=== PATIENT | male | born 1940 | race Caucasian/White ===

== ENCOUNTER 2017-10-24 12:26 | Outpatient (CLI) | payer OTHER, SELFPAY ==
[2017-10-24 12:54] LABS: Abs Immature Grans 0.01 k/cumm (0.0-0.09); Absolute Basophil Count 0.01 k/cumm (0.0-0.2); Absolute Eosinophil Count 0.19 k/cumm (0.0-0.7); Absolute Lymphocyte Count 1.44 k/cumm (1.2-3.4); Absolute Neutrophil Count 4.45 k/cumm (1.2-6.7); Basophils % 0.2; Eosinophils % 2.9; HCT 39.4 % (40.0-50.0); HGB 12.9 g/dL (13.5-17.5); Immature Grans % 0.2; Lymphocytes % 22.2; Mean Corp. HGB Concentration 32.7 g/dL (32.0-36.0); Mean Corpuscular Volume 91.6 fL (80-95); Mean Platelet Volume 8.8 fL (8.0-11.0); Monocytes % 6.2; Neutrophils % 68.3; Platelet Count 271 x1000/uL (130-400); RBC Distribution Width 14.5 % (11.8-14.1)
[2017-10-24 12:57] LABS: Hemoglobin A1C 5.7 % (4.5-6.2)
[2017-10-24 13:05] LABS: Anion Gap 8.8 mmol/L (3-11); BUN 21 mg/dL (7-18); CO2 25.2 mmol/L (21.0-32.0); Calcium 8.5 mg/dL (8.5-10.1); Chloride 107 mmol/L (98-107); Cholesterol 150 mg/dL (50-200); Estimated GFR 53.53 (mL/min/1.73m2); Glucose 95 mg/dL (70-100); HDL Cholesterol 58 mg/dL (40-60); LDL CHOLESTEROL 84 mg/dL (<100); Potassium 4.7 mmol/L (3.5-5.1); Sodium 141 mmol/L (136-145); Triglyceride 117 mg/dL (30-150)
[2017-10-24 13:17] LABS: C-Reactive Protein 0.24 mg/dL (0.0-0.3)
[2017-10-24 13:49] LABS: ESR 18 MM/HR (1-20)
== END 2017-10-24 12:27 ==
PROVIDERS: Visit Provider Optometrist
DX: H49.22 Sixth [abducent] nerve palsy, left eye (principal)
CPT/HCPCS: 36415; 80048; 80061; 83721; 85652; 83036; 85025; 86140